=== PATIENT | male | born 1955 | race Caucasian/White ===

== ENCOUNTER 2017-01-10 15:24 | Inpatient (IN) ==
--- NOTE | 2017-01-10 15:35 | Emergency Department Note ---
Disposition Clinical Impression: Renal insufficiency, Cardiac enzymes elevated Congestive heart failure Qualifiers: Congestive heart failure type: unspecified congestive heart failure type Congestive heart failure chronicity: acute Qualified Code(s): I50.9 - Heart failure, unspecified Disposition: Admitted As Inpatient Condition: Fair Forms: ED Satisfaction Letter Time of Disposition: 16:28 General Adult HPI - General Chief complaint: ED Dizziness Stated complaint: Dizziness Time Seen by Provider: 01/10/17 15:29 Source: patient Mode of arrival: ambulatory Limitations: no limitations Nursing Notes Reviewed: Yes Vital Signs Reviewed: Yes - History of Present Illness HPI Narrative: 61-year-old was seen for dizziness some shortness of breath at the [facility]. Workup there included an assessment of CHF and cardiac ischemia after review with their heel blacker who recommended transfer here for further cardiac evaluation. He was noted to have an elevated troponin of 0.104 with a high normal of 0.045 BNP was elevated at 2832 creatinine is 1.48. Pt Subjective Complaint: Dizziness and near syncope CHF Onset (ago): Just OPERATOR - Related Data Allergies Allergy/AdvReac Type Severity Reaction Status Date / Time bee venom protein (honey bee) Allergy Hives Verified 01/10/17 15:54 All systems ED: reviewed and negative except as stated. Constitutional: Denies: fever, chills, weakness, weight change Eyes: Denies: eye pain, eye discharge, vision change ENT ED: Denies: ear pain, throat pain, dental pain, hearing loss, epistaxis, congestion, dysphagia Cardiovascular: Denies: chest pain, palpitations, dyspnea on exertion, edema, syncope Respiratory: Reports: dyspnea. Denies: cough, wheezes, hemoptysis, stridor Gastrointestinal: Denies: abdominal pain, nausea, vomiting, diarrhea, constipation, hematemesis, melena, hematochezia Genitourinary: Denies: urgency, dysuria, frequency, hematuria Musculoskeletal: Denies: back pain, neck pain, arthralgia, myalgia Integumentary: Denies: rash, abrasion, lesions Neurological: Reports: vertigo. Denies: headache, weakness, numbness, paresthesias, confusion, abnormal gait Psychiatric: Denies: anxiety, depression, suicidal thoughts, homicidal thoughts , auditory hallucinations, visual hallucinations Endocrine: Denies: fatigue Hematological/Lymphatic: Denies: easy bleeding, easy bruising Allergic/Immunologic: Denies: facial swelling, urticaria Physical Exam - General Limitations: no limitations General appearance: alert, in no apparent distress - Head Head exam: atraumatic, normocephalic, normal inspection - Eye Eye exam: Present: normal appearance, PERRL, EOMI - ENT ENT exam: normal exam, normal oropharynx, mucous membranes moist - Neck Neck exam: Present: normal inspection, full ROM, trachea midline - Chest Chest inspection: Present: normal inspection, symmetric chest wall rise - Respiratory Respiratory exam: Present: wheezes, other (Rhonchi) - Cardiovascular Cardiovascular exam: Present: regular rate, normal rhythm, normal heart sounds - Abdominal Exam Abdominal exam: Present: soft, Non-Tender. Absent: tenderness, distention, guarding, rebound, rigidity Course - Reevaluation(s) Reevaluation #1: 61-year-old male who went to the DC because of dizziness and some shortness of breath. Workup findings consistent with CHF elevated cardiac enzymes. No STEMI on EKG. The patient denies chest pain. Patient will be admitted for further evaluation and treatment. Time: 16:28 - Consultations Consultation #1: Discussed with , admit. Time: 16:29 Vital Signs Temperature 98.0 F 01/10/17 15:30 Pulse Rate 59 01/10/17 15:30 Respiratory Rate 16 01/10/17 15:30 Blood Pressure 144/94 01/10/17 15:30 O2 Sat by Pulse Oximetry 95 01/10/17 15:30 Temperature 98.0 F 01/10/17 15:30 Pulse Rate 61 01/10/17 16:23 Respiratory Rate 16 01/10/17 16:23 Blood Pressure 168/104 01/10/17 16:23 O2 Sat by Pulse Oximetry 94 01/10/17 16:23 Oxygen Delivery Oxygen Delivery Room Air Medical Decision Making - Lab Data Lab results reviewed: Yes I reviewed the patient's lab results. Result diagrams: 01/10/17 15:55 Lab Results 01/10/17 Range/Units 15:55 Sodium 138 (136-145) mEq/L Potassium 4.6 H (3.5-4.5) mEq/L Chloride 101 (98-109) mEq/L Carbon Dioxide 28 (19-29) mEq/L BUN 27 H (8-26) mg/dL Creatinine 1.56 H (0.72-1.25) mg/dL Est GFR ( Amer) 55 L (> 60) Est GFR (Non-Af Amer) 46 L (> 60) BUN/Creatinine Ratio 17 (6-26) Glucose 155 H (70-99) mg/dL Calculated Osmolality 294 (280-300) Calcium 8.7 (8.6-10.8) mg/dL - Radiology Data Radiology results reviewed: Yes I reviewed the patient's radiology results. Chest X-Ray 01/10/17 15:29 IMPRESSION: Central vascular congestion without overt edema. Mild cardiomegaly. D/ / Ricky Dominguez MD / Ricky Dominguez MD Interpreting Provider: Ricky Dominguez MD Head CT 01/10/17 15:48 IMPRESSION: No acute intracranial abnormality. D/ / Wu Block MD / Wu Block MD Interpreting Provider: Wu Block MD - EKG Data EKG #1 EKG attestation: Yes I reviewed and interpreted this EKG. EKG shows normal: sinus rhythm Rate: normal Rhythm: NSR T wave inversions noted in: v5, v6 Interpretation: nonspecific ST-T wave changes
[2017-01-10 16:15] LABS: Calcium 8.7 mg/dL (8.6-10.8); Potassium 4.6 mEq/L (3.5-4.5)
[2017-01-10] MEDS ORDERED: Furosemide 40 MG/4 ML VIAL IVP ONE (16:24)
--- NOTE | 2017-01-10 19:37 | Internal Med History&Physical ---
Date of Encounter: 01/10/17 Time of Encounter: 19:37 Assessment and Plan (1) Dehydration Current visit: Yes Status: Acute Likely from over diuresis, he received oral fluids, will encourage oral liquid intake (2) Hyperkalemia Current visit: Yes Status: Acute potassium of 4.6, likely from VIVIENNE vs cellular shifts, not need for any urgent intervention, will follow BMP (3) Renal insufficiency Current visit: Yes Status: Acute baseline creatinine unknown but is being seen here with a creatinine of 1.56 which is abnormal, no mention of CKD in his documents, but in the setting of dehydration this could be either renal insufficiency or VIVIENNE, will avoid nephrotoxins, renally dose all medications and will repeat BMP in AM (4) Congestive heart failure Current visit: Yes Status: Chronic Reported history, his LVEF is unknown, will get a 2-D echo for evaluation of LVEF and valvular pathology, resume gentle diuresis in AM with daily weights, fluid and salt restriction, LAUREN-I and beta blockers Qualifiers: Congestive heart failure type: unspecified congestive heart failure type Congestive heart failure chronicity: chronic Qualified Code(s): I50.9 - Heart failure, unspecified (5) Diabetes mellitus Current visit: Yes Status: Chronic A1c unknown, he is on insulin at home which we will continue with sliding scale insulin for hyperglycemia coverage, will update A1c Qualifiers: Diabetes mellitus type: type 2 Diabetes mellitus complication status: with neurologic complications Diabetes mellitus complication detail: with polyneuropathy Diabetes mellitus residential insulin use: with residential use Qualified Code(s): E11.42 - Type 2 diabetes mellitus with diabetic polyneuropathy; Z79.4 - prison (current) use of insulin; Z79.4 - prison ( current) use of insulin; Z79.4 - medical terminologist (current) use of insulin; Z79.4 - medical terminologist (current) use of insulin (6) Hypertension Current visit: Yes Status: Chronic continue antihypertensives but BP Qualifiers: Hypertension type: essential hypertension Qualified Code(s): I10 - Essential (primary) hypertension (7) COPD (chronic obstructive pulmonary disease) Current visit: Yes Status: Chronic Stable, nebs as needed Qualifiers: COPD type: chronic bronchitis Chronic bronchitis type: simple Qualified Code(s): J41.0 - Simple chronic bronchitis (8) Hypothyroidism Current visit: Yes Status: Chronic Continue Synthroid Qualifiers: Hypothyroidism type: acquired Qualified Code(s): E03.9 - Hypothyroidism, unspecified Internal Medicine - H&P: HPI Chief complaint: dizziness Admitted From: Emergency Dept Plans for Post Hospital Care: Home History of present illness: Mr. Burger is a 61 year old male with a history of congestive heart failure, left ventricular ejection fraction unknown, was transferred here from the [facility] for dizziness. He reports that he was in his usual state of health and was seen in the [place] dietitian's office today and while he was on his way out he had an episode of dizziness and this alarmed the staff. He felt that everything was okay but they were concerned about his symptoms so they sat him down and gave him some water to drink and transferred him here for further evaluation and management. He reports that his Lasix dose was increased sometime last week Sunday due to leg swelling and worsening CHF symptoms. Since then his symptoms of dyspnea, dyspnea on exertion have improved but he experienced multiple episodes of lightheadedness. Due to concern for over diuresis in the setting of patient with heart failure history it was thought that transfer to [place] [facility] will be helpful so that is how he ended up in our ER. He denies chest pain, palpitations, fever, chills, nausea, or vomiting. Past medical history Hypertension COPD CHF with unknown EF Type II diabetes mellitus CAD but no prior stent or CABG, Anxiety Depression hypothyroidism BPH mood disorder seasonal allergies allergic rhinitis Past surgical history right eye cataract surgery, left eye is pending Social history He is and lives at home, a , he drinks alcohol socially, he denies ever smoking but admits to secondhand cigarette smoking exposure. Family history Father had hypertension, father and paternal grandmother had diabetes mellitus, but cannot uncle had [place], no family history of stroke to his knowledge Past Med Surg Social Fam HX - Past Medical History Source: patient, old records reviewed Medical history: COPD, diabetes, hypertension Psychiatric history: anxiety, depression - Social History Smoking Status: Never smoker Smokeless Tobacco Status: Yes Alcohol use: occasionally Drug use: none - Family History Father Hx Family Cardiac Disorders: Yes (HYPERTENSION.) Internal Medicine - H&P: Meds Albuterol Sulfate [Albuterol Inhaler] 2 puff IH QID PRN 01/10/17 [History] Aspirin Enteric Coated [Aspirin EC] 81 mg PO DAILY 01/10/17 [History] Atorvastatin [Lipitor] 40 mg PO HS 01/10/17 [History] Dextrose [Glucose] 16 gm PO AD PRN 01/10/17 [History] Divalproex (24 HR) [Depakote ER (24 HR)] 500 mg PO HS 01/10/17 [History] Finasteride [Proscar] 5 mg PO DAILY 01/10/17 [History] Fluticasone Propionate Nasal [Flonase] 50 mcg NS DAILY 01/10/17 [History] Insulin ASPART [NovoLOG] 10 unit SQ TIDWM 01/10/17 [History] Insulin Glargine,Hum.rec.anlog [Basaglar Kwikpen U-100] 64 unit SQ BID 01/10/17 [History] Levothyroxine [Synthroid] 75 mcg PO 0630 01/10/17 [History] Losartan Potassium [Cozaar] 100 mg PO DAILY 01/10/17 [History] Metoprolol XL (24 HR) Succ [Toprol XL] 150 mg PO DAILY 01/10/17 [History] Montelukast [Singulair] 10 mg PO DAILY 01/10/17 [History] NIFEdipine [Nifedipine ER] 90 mg PO DAILY 01/10/17 [History] Propranolol [Inderal] 10 mg PO BID 01/10/17 [History] Spironolactone [Aldactone] 37.5 mg PO DAILY 01/10/17 [History] Tamsulosin [Flomax] 0.4 mg PO HS 01/10/17 [History] Venlafaxine XR (24 HR) [Effexor XR] 225 mg PO DAILY 01/10/17 [History] hydrOXYzine pamoate [HydrOXYzine Pamoate] 25 mg PO TID PRN 01/10/17 [History] metFORMIN [Glucophage] 500 mg PO BIDWM 01/10/17 [History] 3 Allergy/AdvReac Type Severity Reaction Status Date / Time bee venom protein (honey bee) Allergy Hives Verified 01/10/17 15:54 All Systems PM: A 10-system review of systems was performed and is negative for pertinent findings except as documented above in the HPI. - Constitutional Vitals: Temp Pulse Resp BP Pulse Ox 97.5 F L 66 14 149/90 95 01/10/17 18:48 01/10/17 18:48 01/10/17 18:48 01/10/17 18:48 01/10/17 18:48 GENERAL: Adult male, lying in bed, Alert, not in obvious pain or distress HEENT: NC/AT, EOMI, PERRLA, anicteric sclera, normal conjunctiva, supple, clear nares, moist mucous membranes, RESP: Lungs are clear to auscultation bilaterally, with good AE, no crackles or wheeze CARDIO: Normal heart sounds with RRR, no murmurs, no JVD, 2+ bipedal edema of the lower extremities GI: Soft, full, no tenderness, no organomegaly felt, normal bowel sounds heard MUSCULOSKELETAL: Grossly normal movements bilaterally, no deformities noted, NEUROLOGIC: CN 2-12 intact grossly. No gross motor/sensory deficit appreciated, PSYCHIATRY: AAO x 3. Mood is fair SKIN: chronic lower extremity lesions concerning for stasis dermatitis Internal Med - H&P Results - Labs CBC & Chem 7: 01/10/17 15:55 - EKG Data -: EKG Interpreted by Myself EKG shows normal: sinus rhythm, ST-T waves (non specific) - Diagnostic Studies Chest x-ray Status: image reviewed by me
[2017-01-10] MEDS ORDERED: Naloxone 0.4 MG/ML INJ IVP PRN (20:21)
[2017-01-10] MEDS ORDERED: Dextrose Gel 15 GM PO PRN ×2 (20:23)
[2017-01-10] MEDS ORDERED: D5% in Water 1,000 ML IVC PRN (20:23)
[2017-01-10] MEDS ORDERED: *HR* Dextrose 50 % in Water (Syg) 50 ML SYRINGE IVP PRN (20:23)
[2017-01-10] MEDS ORDERED: Albuterol 2.5 MG/3 ML NEBULIZER IH PRN (20:26)
[2017-01-10] MEDS ORDERED: NON-FORMULARY MEDICATION 1 EACH EACH (Insulin Aspart 10 UNIT) SQ SCH (20:30)
[2017-01-10] MEDS: Insulin LISPRO 300 UNITS/3 ML VIAL SQ SCH ×2 (23:08)
[2017-01-10] MEDS: Insulin DETEMIR 100 UNIT/ML X5UNITS SQ SCH (23:27)
[2017-01-10] MEDS: *HR* Heparin 5,000 UNIT/ML VIAL SQ SCH (23:27)
[2017-01-10] MEDS: Divalproex (24 HR) 500 MG TABLET PO SCH (23:27)
[2017-01-11 08:00] LABS: BUN/Creatinine Ratio 20 (6-26); Blood Urea Nitrogen 27 mg/dL (8-26); Calcium 8.6 mg/dL (8.6-10.8); Carbon Dioxide 31 mEq/L (19-29); Chloride 101 mEq/L (98-109); Glucose 145 mg/dL (70-99); Magnesium 1.7 mg/dL (1.6-2.6); Osmolality,Calculated 296 (280-300); Potassium 4.7 mEq/L (3.5-4.5); Sodium 139 mEq/L (136-145); eGFR For African Americans > 60 (> 60); eGFR For Non-African Americans 53 (> 60)
[2017-01-11 08:54] LABS: Hemoglobin A1C 9.2 %
[2017-01-11] MEDS ORDERED: Fluticasone Propionate Nasal 50 MCG/SPRAY BOTTLE NS SCH (09:00)
[2017-01-11] MEDS ORDERED: Aspirin Enteric Coated 81 MG Tablet PO SCH (09:00)
[2017-01-11] MEDS ORDERED: Finasteride 5 MG TABLET PO SCH (09:00)
[2017-01-11] MEDS ORDERED: Metoprolol XL (24 HR) Succ 50 MG TAB.ER.24H PO SCH (09:00)
[2017-01-11] MEDS ORDERED: NIFEdipine XL (24 HR) 30 MG TAB.ER.24 PO SCH (09:00)
[2017-01-11] MEDS ORDERED: Venlafaxine XR (24 HR) 75 MG CAP.ER.24H PO SCH (09:00)
[2017-01-11] MEDS: Insulin DETEMIR 100 UNIT/ML X5UNITS SQ SCH ×2 (09:30→20:26)
[2017-01-11] MEDS: Insulin LISPRO 300 UNITS/3 ML VIAL SQ SCH ×4 (09:31→20:25)
[2017-01-11] MEDS: *HR* Heparin 5,000 UNIT/ML VIAL SQ SCH ×2 (09:31→17:27)
--- NOTE | 2017-01-11 11:21 | Electrocardiograph Report ---
[address] [place], [place] [address] Test Date: 2017-01-10 Pat Name: Byron Burger Department: 104 Room: 3B Gender: M Pediatric Hospitalist: : [id number] Requested By: Pito Alba Order Number: [id number] Reading MD: Rafael Layne MD Measurements Intervals [place] Rate: 60 P: 43 CO: 208 QRS: 5 QRSD: 94 T: 162 QT: 436 QTc: 436 Interpretive Statements SINUS RHYTHM WITH SINUS ARRHYTHMIA LATERAL ISCHEMIA Electronically Signed On 01-11-2017 11:19:25 EDT by Rafael Layne MD
--- NOTE | 2017-01-11 13:17 | Internal Med Progress Note ---
Date of Encounter: 01/11/17 Time of Encounter: 09:55 - Assessment and plan (1) Renal insufficiency Current Visit: Yes Status: Acute Assessment and plan: baseline unknown Cr improving from admitting value of 1.56 to 1.3, GFR also improving Obtain renal USS and Phosphate level to assess for CKD Not on hydration, encourage liberal fluid intake Continue to monitor chem (2) Hyperkalemia Current Visit: Yes Status: Acute Assessment and plan: K 4.6 on admission, 4.7 this am Given kayexalate (3) Congestive heart failure Current Visit: Yes Status: Chronic Assessment and plan: Reported history, his LVEF is unknown, ECHO pending for evaluation of LVEF and valvular pathology, resume gentle diuresis in AM with daily weights, fluid and salt restriction, LAUREN -I and beta blockers Qualifiers: Congestive heart failure type: unspecified congestive heart failure type Congestive heart failure chronicity: chronic Qualified Code(s): I50.9 - Heart failure, unspecified (4) Diabetes mellitus Current Visit: Yes Status: Chronic Assessment and plan: A1C 9.2 FS acceptable Continue current regimen of insulin FS ACHS ADA diet Qualifiers: Diabetes mellitus type: type 2 Diabetes mellitus complication status: with neurologic complications Diabetes mellitus complication detail: with polyneuropathy Diabetes mellitus long-term insulin use: with lining ironer use Qualified Code(s): E11.42 - Type 2 diabetes mellitus with diabetic polyneuropathy; Z79.4 - detention (current) use of insulin; Z79.4 - consumer loan processor ( current) use of insulin; Z79.4 - consumer loan processor (current) use of insulin; Z79.4 - detention (current) use of insulin (5) Hypertension Current Visit: Yes Status: Chronic Assessment and plan: Continue current meds Qualifiers: Hypertension type: essential hypertension Qualified Code(s): I10 - Essential (primary) hypertension (6) COPD (chronic obstructive pulmonary disease) Current Visit: Yes Status: Chronic Assessment and plan: Not in exacerbation at this time Continue home meds Qualifiers: COPD type: chronic bronchitis Chronic bronchitis type: simple Qualified Code(s): J41.0 - Simple chronic bronchitis (7) Hypothyroidism Current Visit: Yes Status: Chronic Assessment and plan: Resume home meds Qualifiers: Hypothyroidism type: acquired Qualified Code(s): E03.9 - Hypothyroidism, unspecified - Subjective Interval history: 61 M with Uncontrolled DM, CHFpEF, HTN, COPD, Hyoothyroid, hard of hearing Seen and evaluated at bedside No new complains Renal function is slowly improving - Constitutional Vitals: Temp Pulse Resp BP Pulse Ox 98.1 F 64 18 122/75 95 01/11/17 11:05 01/11/17 11:05 01/11/17 11:05 01/11/17 11:05 01/11/17 11:05 General appearance: Present: A&O X 3, pleasant, no acute distress, obese - Head Head exam: Present: atraumatic, normocephalic - Eye Eye exam: Present: PERRL, conjuntiva pink, sclera anicteric Pupils: Present: PERRL - Neck Neck exam general surgery: Present: supple, trachea midline. Absent: lymphadenopathy - Respiratory Respiratory exam: Present: CTAB. Absent: accessory muscle use, rales, rhonchi, wheezes - Cardiovascular Cardiovascular exam: Present: RRR, +S1, +S2, systolic murmur - GI/Abdominal GI/Abdominal exam: Present: normal bowel sounds, soft, no peritoneal signs. Absent: distended, tenderness - Extremities Exam Additional comments: Chronic venous stasis changes - Neurological Exam Neurological exam: Present: alert, CN II-XII intact, oriented X3, no focal deficits. Absent: pronater drift, facial droop, speech deficit - Skin Skin exam: Present: dry, intact Internal Medicine: Result - Labs CBC & Chem 7: 01/11/17 06:29 Labs: BMP 01/11/17 06:29 Sodium 139 Potassium 4.7 H Chloride 101 Carbon Dioxide 31 H BUN 27 H Creatinine 1.38 H Glucose 145 H Calcium 8.6 Consult Discharge Plan - Plan [facility]errals: [facility] [Primary Care Provider[facility] -
[2017-01-11] MEDS ORDERED: hydrOXYzine pamoate 25 MG CAPSULE PO PRN (13:21)
[2017-01-11] MEDS: Divalproex (24 HR) 500 MG TABLET PO SCH (20:25)
[2017-01-12] MEDS: *HR* Heparin 5,000 UNIT/ML VIAL SQ SCH (00:51)
[2017-01-12 01:32] LABS: Immature Granulocytes % 0.6 % (0-4); Mean Corpuscular HGB Conc 31.5 g/dL (31.6-35.5)
[2017-01-12 01:34] LABS: Basophils # 0.1 K/mcL (0.0-0.2); Basophils % 0.6 %; Eosinophils # 0.2 K/mcL (0.0-0.6); Eosinophils % 1.9 %; Hematocrit 46.6 % (37.5-50.1); Hemoglobin 14.7 g/dL (12.9-16.9); Immature Platelets 24.6 % (1.1-6.1); Lymphocytes # 2.1 K/mcL (0.6-4.6); Lymphocytes % 23.9 %; Mean Corpuscular Hemoglobin 26.2 pg (28.0-33.3); Mean Corpuscular Volume 82.9 fL (83.0-100.0); Monocytes # 0.7 K/mcL (0.0-1.3); Monocytes % 8.1 %; Neutrophils # 5.7 K/mcL (1.6-8.9); Platelet Count 138 K/mcL (140-400); Red Blood Count 5.62 M/mcL (4.19-5.50); Red Cell Distribution Width 16.8 % (11.5-14.5); Segmented Neutrophils % 64.9 %
[2017-01-12 01:47] LABS: Calcium 8.9 mg/dL (8.6-10.8); Potassium 4.2 mEq/L (3.5-4.5)
[2017-01-12 02:11] LABS: Large Platelets Present (Not Present); Platelet Estimate Slight Decrease (Normal)
[2017-01-12] MEDS: Insulin LISPRO 300 UNITS/3 ML VIAL SQ SCH (07:47)
[2017-01-12 07:49] VITALS: BP 169/98
[2017-01-12] MEDS ORDERED: Spironolactone 25 MG TABLET PO SCH (09:00)
--- NOTE | 2017-01-12 10:46 | Discharge Summary ---
Date of Encounter: 01/12/17 Time of Encounter: 10:44 - Discharge Diagnosis (1) Renal insufficiency Priority: Primary Status: Acute (2) Hyperkalemia Priority: Primary Status: Resolved (3) Congestive heart failure Priority: Secondary Status: Chronic Qualifiers: Congestive heart failure type: unspecified congestive heart failure type Congestive heart failure chronicity: chronic Qualified Code(s): I50.9 - Heart failure, unspecified (4) Diabetes mellitus Priority: Secondary Status: Chronic Qualifiers: Diabetes mellitus type: type 2 Diabetes mellitus complication status: with neurologic complications Diabetes mellitus complication detail: with polyneuropathy Diabetes mellitus [facility] insulin use: with [facility] use Qualified Code(s): E11.42 - Type 2 diabetes mellitus with diabetic polyneuropathy; Z79.4 - penitentiary (current) use of insulin; Z79.4 - penitentiary ( current) use of insulin; Z79.4 - penitentiary (current) use of insulin; Z79.4 - penitentiary (current) use of insulin (5) Hypertension Priority: Secondary Status: Chronic Qualifiers: Hypertension type: essential hypertension Qualified Code(s): I10 - Essential (primary) hypertension (6) COPD (chronic obstructive pulmonary disease) Priority: Secondary Status: Chronic Qualifiers: COPD type: chronic bronchitis Chronic bronchitis type: simple Qualified Code(s): J41.0 - Simple chronic bronchitis (7) Hypothyroidism Priority: Secondary Status: Chronic Qualifiers: Hypothyroidism type: acquired Qualified Code(s): E03.9 - Hypothyroidism, unspecified - Discharge Medications Home Medications: Albuterol Sulfate [Albuterol Inhaler] 2 puff IH QID PRN 01/10/17 [History] Aspirin Enteric Coated [Aspirin EC] 81 mg PO DAILY 01/10/17 [History] Atorvastatin [Lipitor] 40 mg PO HS 01/10/17 [History] Dextrose [Glucose] 16 gm PO AD PRN 01/10/17 [History] Divalproex (24 HR) [Depakote ER (24 HR)] 500 mg PO HS 01/10/17 [History] Finasteride [Proscar] 5 mg PO DAILY 01/10/17 [History] Fluticasone Propionate Nasal [Flonase] 50 mcg NS DAILY 01/10/17 [History] Insulin ASPART [NovoLOG] 10 unit SQ TIDWM 01/10/17 [History] Insulin Glargine,Hum.rec.anlog [Basaglar Kwikpen U-100] 64 unit SQ BID 01/10/17 [History] Levothyroxine [Synthroid] 75 mcg PO 0630 01/10/17 [History] Losartan Potassium [Cozaar] 100 mg PO DAILY 01/10/17 [History] Metoprolol XL (24 HR) Succ [Toprol Xl] 150 mg PO DAILY 01/10/17 [History] Montelukast [Singulair] 10 mg PO DAILY 01/10/17 [History] NIFEdipine [Nifedipine ER] 90 mg PO DAILY 01/10/17 [History] Propranolol [Inderal] 10 mg PO BID 01/10/17 [History] Spironolactone [Aldactone] 37.5 mg PO DAILY 01/10/17 [History] Tamsulosin [Flomax] 0.4 mg PO HS 01/10/17 [History] Venlafaxine XR (24 HR) [Effexor XR] 225 mg PO DAILY 01/10/17 [History] hydrOXYzine pamoate [HydrOXYzine Pamoate] 25 mg PO TID PRN 01/10/17 [History] metFORMIN [Glucophage] 500 mg PO BIDWM 01/10/17 [History] Allergies/Adverse Reactions: 3 Allergy/AdvReac Type Severity Reaction Status Date / Time bee venom protein (honey bee) Allergy Hives Verified 01/10/17 15:54 Procedures/tests Complete & Pending: Procedures Performed prior 72 hours Category Date Time Status Retroperitoneal Ultrasound - Complete [US Exams 01/11/17 14:30 Completed retroperitoneal comp] [US] Stat EV echocardiogram Routine Y 01/11/17 06:20 Completed Date of admission: 01/10/17 20:21 Primary care physician: PCP [place] Discharging clinician: Cristobal Downing Anticipated date of discharge: 01/12/17 - Patient Status Disposition: Home, Self-Care Condition: Good Functional capacity at discharge: independent ambulation Overall status at discharge: patient is progressing back to baseline - Discharge Instructions Instructions: Heart Failure (DC), Diabetes Mellitus Type 2 in Adults (DC), Chronic Obstructive Pulmonary Disease (DC), Chronic Hypertension (DC) [facility]: [facility] Care Provider[facility] - 01/22/17 9:30 am - Diet and Activity Activity: resume usual activities as tolerated Diet: diabetic diet, low fat, low cholesterol, low salt diet Interval History: See below Hospital course: Mr. Burger is a 61 year old male with Uncontrolled DM, CHFpEF, HTN, COPD, Hyoothyroid, hard of hearing He was admitted from the [place] for complains of dizziness and was found to be dehydrated from overdiuresis with hyperkalemia Since baseline rnal function was unknown, it was thought to be due to VIVIENNE Patient was managed wconservatively by avoiding nephrotoxins Renal USS done 01/11 reveals evidence of CKD. Patient renal function has remained at the same level, potassium improved ECHO was done 01/11 which showed low normal EF with LVh and moderate LVDD, mild /TR/Pulm HTN. No wall motion abnormalities. Patient was euvolemic Home medications have been resumed, patient is encouraged to follow up with his PCP for a referral to Nephrology for his CKD Other chronic medical conditions were stable Patient is ambulatory, tolerating po and asymptomatic at time of discharge - Time Spent with Patient Total time spent providing and/or coordinating discharge services: Less than 30 minutes - Constitutional Vitals: Temp Pulse Resp BP Pulse Ox 98.1 F 65 16 169/98 94 01/12/17 07:37 01/12/17 07:37 01/12/17 07:37 01/12/17 07:37 01/12/17 07:37 General appearance: Present: A&O X 3, pleasant, no acute distress, obese - Head Head exam: Present: atraumatic, normocephalic - Eye Eye exam: Present: PERRL, conjuntiva pink, sclera anicteric Pupils: Present: PERRL - Neck Neck exam general surgery: Present: supple, trachea midline. Absent: lymphadenopathy - Respiratory Respiratory exam: Present: CTAB. Absent: accessory muscle use, rales, rhonchi, wheezes - Cardiovascular Cardiovascular exam: Present: RRR, +S1, +S2, systolic murmur. Absent: diastolic murmur, gallop, rubs - GI/Abdominal GI/Abdominal exam: Present: normal bowel sounds, soft, no peritoneal signs. Absent: distended, tenderness - Extremities Exam Extremities exam: Present: warm, radial pulses palpable and symmetrical. Absent : calf tenderness, cyanotic, pedal edema Additional comments: chronic venous stasis changes, trace edema - Neurological Exam Neurological exam: Present: alert, CN II-XII intact, oriented X3, no focal deficits. Absent: pronater drift, facial droop, speech deficit - Skin Skin exam: Present: dry, intact
== END 2017-01-12 13:45 | disposition home or self-care (01) | DRG 641 ==
LOC: 3BNU 15:24 → EMEROO 15:24 → 3BNU 18:20 → SUATTDRO 20:21
PROVIDERS: ADMIT Internal Medicine; ATTEND Internal Medicine